=== PATIENT | male | born 1990 | race Caucasian/White ===

== ENCOUNTER 2022-05-01 12:49 | Emergency (ER) | payer MEDICAID ==
[~2022-05-01] VITALS: Ht 170.2 cm; Wt 83.0 kg
[2022-05-01] MEDS ORDERED: PERTUSS(ACELL),DIPH,TET VAC/PF 0.5 ML SYRINGE IM. ONE (14:15)
[2022-05-01] MEDS ORDERED: LIDOCAINE 1% 10 ML VIAL SQ ONE (14:15)
[2022-05-01] MEDS ORDERED: CEPH-558 PO (15:09)
[2022-05-01 15:15] VITALS: BP 143/75
== END 2022-05-01 15:53 | disposition home or self-care (01) ==
LOC: EMS 12:49
DX: S81.811A Laceration without foreign body, right lower leg, initial encounter (principal); F12.90 Cannabis use, unspecified, uncomplicated; W45.8XXA Other foreign body or object entering through skin, initial encounter; Y93.89 Activity, other specified; Y92.89 Other specified places as the place of occurrence of the external cause; Y99.8 Other external cause status
CPT/HCPCS: 99283; 90715; 90471; 12004; J3490

== ENCOUNTER 2022-05-10 08:47 | Emergency (ER) | payer MEDICAID ==
[~2022-05-10] VITALS: Ht 175.3 cm; Wt 83.0 kg
[~2022-05-10 08:47] MED LIST: CEPH-558 PO
[2022-05-10 08:55] VITALS: BP 120/70
== END 2022-05-10 12:04 | disposition home or self-care (01) ==
LOC: EMS 08:55
DX: T14.8XXD Other injury of unspecified body region, subsequent encounter (principal); F12.90 Cannabis use, unspecified, uncomplicated; Z98.890 Other specified postprocedural states; Z48.02 Encounter for removal of sutures; X58.XXXD Exposure to other specified factors, subsequent encounter
CPT/HCPCS: 99281; Z7502